=== PATIENT | male | born 1970 | race Caucasian/White ===

== ENCOUNTER → 2021-09-16 | Day surgery (SDC) | payer OTHER ==
[~2021-09-16] VITALS: Ht 177.8 cm; Wt 81.6 kg
[~2021-09-16] MED LIST: NORVASC5 MG PO; PRINIVIL20 MG PO
[2021-09-16 09:17] LABS: BASOPHIL 0.7 % (0-2); EOSINOPHIL 2.7 % (0-5); HCT 44.7 % (42.0-52.0); LYMPHOCYTE 23.5 % (15-48); MCH 29.3 pg (25.0-31.0); MCHC 33.6 g/dL (32.0-36.0); MCV 87.3 fL (78.0-100.0); MONOCYTE 10.2 % (0-12); MPV 10.7 fL (6.0-9.5); NEUTROPHIL 62.2 % (41-80); NRBC 0; PLT 243 K/uL (150-400); RBC 5.12 M/uL (4.70-6.00); WBC 8.2 K/uL (4.0-10.5)
[2021-09-16 09:51] LABS: BUN/CREAT RATIO (CALC) 16.1 RATIO; CREATININE 1.12 mg/dL (0.67-1.17); POTASSIUM 4.6 mmol/L (3.5-5.1)
== END | disposition home or self-care (01) ==
LOC: FAS 08:13
PROVIDERS: Anesthesiology; Oral & Maxillofacial Surgery
DX: K02.9 Dental caries, unspecified (principal); K04.7 Periapical abscess without sinus; I10 Essential (primary) hypertension
CPT/HCPCS: D7140; D7210; D7310; 36415; 71045; 80048; 85025; 93005; J1100; J1885; J2250; J2370; J2405; J2704; J3010; J7120